=== PATIENT | female | born 1955 | race Caucasian/White ===

== ENCOUNTER → 2022-10-28 | Outpatient (CLI) | payer MEDICARE, BC, SELFPAY ==
--- NOTE | 2022-10-28 12:35 | EKG12_ITS ---
Test Reason : PRE OP Blood Pressure : / mmHG Vent. Rate : 094 BPM Atrial Rate : 094 BPM P-R Int : 136 ms QRS Dur : 078 ms QT Int : 350 ms P-R-T Axes : 058 072 052 degrees QTc Int : 437 ms Normal sinus rhythm Normal ECG Confirmed by SHERON CORTEZ, JENNYFER ([id number]), video tape editor [place] ([id number]) on 10/29/2022 1:28:51 PM Referred By: Zafar Penaloza Confirmed By:JENNYFER HOLBROOK MD
--- NOTE | 2022-10-28 12:36 | CT_ITS ---
EXAM: CT RIGHT LOWER EXTREMITY WITHOUT INTRAVENOUS CONTRAST CLINICAL INDICATION: VARUS DEFORMITY TECHNIQUE: Helically acquired images were obtained of the right lower extremity without intravenous contrast. 2-D reformats were performed by the technologist. CTDIvol = ( 18.73 ) mGy, DLP = ( 1173.53 ) mGycm This CT exam was performed using one or more of the following dose reduction techniques: automated exposure control, adjustment of the mA and/or kV according to patient size, and/or use of iterative reconstruction technique. COMPARISON: No relevant prior studies available. 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 Mild degenerative changes of the lateral femorotibial compartment. Small to moderate amount of suprapatellar joint fluid. Small/prominent suprapatellar enthesophyte. Ankle mortise is intact. Calcaneal enthesopathy noted. Mild to moderate degenerative changes involving the right hip joint. No acute or healing fracture or malalignment. No unusual lytic or sclerotic lesions of bone. SOFT TISSUES: No soft tissue swelling or gas. No radiopaque foreign body. CT/Extremity Lower without Contra IMPRESSION: Presumed preoperative planning study showing severe osteoarthrosis at the medial femorotibial compartment. Small to moderate suprapatellar joint effusion. Electronically Signed: Tarik Johnson MD at 3:13 EDT ,
[2022-10-28 13:27] LABS: Absolute Lymphocyte Count 3.58 X10^3/uL (0.83-4.51); Absolute Neutrophil Count 3.7 X10^3/uL (2.0-7.7); Basophil# 0.04 X10^3/uL; Basophil% 0.5 % (0-1); Eosinophil# 0.25 X10^3/uL; Hematocrit 48.8 % (37-47); Hemoglobin 16.1 g/dL (12.0-15.0); Lymphocyte # 3.58 X10^3/ul (0.83-4.51); Mean Corpuscular Hgb 30.9 pg (27.0-32.0); Mean Corpuscular Volume 93.7 fL (81-99); Mean Platelet Vol. 9.2 fl (6.2-12.0); Monocyte# 0.71 X10^3/uL; Monocyte% 8.5 % (0-10); NRBC Flagged by Analyzer 0 % (0-5); Neutrophil # 3.72 X10^3/uL (2.7-7.7); Neutrophil % 44.6 % (47-70); Platelet Count 292 K/mm3 (150-450); RBC Distribution Width CV 13.4 % (11.6-14.6); RBC Distribution Width SD 45.8 fl (35.1-43.9); Red Blood Count 5.21 M/mm3 (4.2-5.4); White Blood Count 8.3 K/mm3 (4.4-11.0)
[2022-10-28 14:04] LABS: Albumin, Serum 3.9 g/dL (3.2-5.0); Anion Gap 6 (5-15); BUN 19 mg/dL (7-18); BUN/Creat Ratio 18.8 RATIO (10-20); Calcium,Total 9.4 mg/dL (8.5-10.1); Chloride 98 mmol/L (98-107); Creatinine, Serum 1.01 mg/dL (0.55-1.02); EST Glomerular Filtration Rate 58 mL/min (>60); Est Glom Filt Rate - Afr Amer 70 mL/min (>60); Glucose 110 mg/dL (74-106); Potassium 3.4 mmol/L (3.5-5.1); Sodium Level 138 mmol/L (136-145)
== END | disposition home or self-care (01) ==
LOC: CT 12:32
PROVIDERS: Referring Provider Specialist; Visit Provider Specialist
DX: Z01.818 Encounter for other preprocedural examination (principal); M17.11 Unilateral primary osteoarthritis, right knee; M21.161 Varus deformity, not elsewhere classified, right knee; G89.29 Other chronic pain; Z86.16 Personal history of COVID-19
CPT/HCPCS: 36415; 73700; 80048; 82040; 85025; 93005